=== PATIENT | female | born 1990 | race Hispanic/Latino ===

== ENCOUNTER 2016-12-07 13:43 | Emergency (ER) | payer MEDICAID ==
[2016-12-07 13:44] VITALS: BMI 23.0
[2016-12-07 13:50] VITALS: BP 123/76; PULSE 66; RESP 16; TEMP 98; O2SAT 100
--- NOTE | 2016-12-07 14:01 | ED PDOC ---
HPI: General Adult Time Seen by Provider: 12/07/16 13:55 Chief Complaint (Nursing): Abnormal Skin Integrity Chief Complaint (Provider): blister History Per: Patient, Family History/Exam Limitations: no limitations Onset/Duration Of Symptoms: Days (Yesterday.) Additional Complaint(s): Patient sustained minor blister to right hand yesterday. She went to work today and was told she needs to cover the blister on her hand so she came to ED as she does not have any bandaids at home. Patient denies any drainage to affected area but has mild pain. PMD: None Past Medical History Reviewed: Historical Data, Nursing Documentation, Vital Signs Vital Signs: Last Vital Signs Temp 98.0 F 12/07/16 13:47 Pulse 66 12/07/16 13:47 Resp 16 12/07/16 13:47 BP 123/76 12/07/16 13:47 Pulse Ox 100 12/07/16 14:06 - Medical History PMH: No Chronic Diseases - Surgical History Surgical History: Tonsillectomy - Family History Family History: States: No Known Family Hx - Living Arrangements Living Arrangements: With Family - Social History Current smoker - smoking cessation education provided: No Alcohol: None Drugs: Denies - Immunization History Hx Tetanus Toxoid Vaccination: Yes - Home Medications Home Medications: Ambulatory Orders Medication Instructions Recorded Nitrofurantoin Macrocrystals 100 mg PO BID #10 cap 01/28/14 [Macrobid] Acetaminophen/Codeine Phosph 1 tab PO Q6H PRN #20 tab 01/05/15 [Acetaminophen/Codeine 300 mg-15 mg] - Allergies Allergies/Adverse Reactions: Allergies Allergy/AdvReac Type Severity Reaction Status Date / Time No Known Allergies Allergy Verified 01/23/14 11:51 Review of Systems ROS Statement: Except As Marked, All Systems Reviewed And Found Negative Musculoskeletal: Positive for: Other (Blister on the right index finger.) Physical Exam - Reviewed Nursing Documentation Reviewed: Yes Vital Signs Reviewed: Yes - Physical Exam Appears: Positive for: Well, Non-toxic, No Acute Distress Skin: Positive for: Normal Color. Negative for: Rash Eye Exam: Positive for: Normal appearance Cardiovascular/Chest: Positive for: Tachycardia Extremity: Positive for: Normal ROM, Other (Small blister on the right index finger. No active drainage. Full range of motion of all digits on the right hand.) Neurologic/Psych: Positive for: Alert, Oriented - ECG O2 Sat by Pulse Oximetry: 100 (RA) Pulse Ox Interpretation: Normal Medical Decision Making Medical Decision Makin: Initial Impression: Blister on the index finger of the right hand. Initial Plan: * blister area cleansed with normal saline. * Bandage applied to hand. Patient was given wound care instructions. Scribe Attestation: Documented by Farhan Daugherty acting as a scribe for Zakiya Willson PA-C. Provider Scribe Attestation: All medical record entries made by the Scribe were at my direction and personally dictated by me. I have reviewed the chart and agree that the record accurately reflects my personal performance of the history, physical exam, medical decision making, and the department course for this patient. I have also personally directed, reviewed, and agree with the discharge instructions and disposition. Time Disposition - Clinical Impression Clinical Impression: Blister - Patient ED Disposition Is Patient to be Admitted: No Counseled Patient/Family Regarding: Diagnosis, Need For Followup - Disposition Referrals: [facility] [Outside] Disposition: Routine/Home Disposition Time: 14:28 Condition: STABLE Additional Instructions: Keep area clean and dry. Follow up with clinic in 2-3 days. Instructions: Blister (ED) Forms: [employer] (Singaporean)
== END 2016-12-07 16:23 | disposition home or self-care (01) ==
LOC: H.ER 13:43
DX: M79.641 Pain in right hand (principal)

== ENCOUNTER 2018-07-14 04:55 | Inpatient (IN) | payer OTHER ==
[2018-07-14 05:53] VITALS: BMI 27.4
[2018-07-14] MEDS ORDERED: Lactated Ringer's 1,000 ML IV ONE ×3 (05:53→10:19)
[2018-07-14] MEDS ORDERED: Oxytocin 30 UNIT in NS 500 ml 30 UNITS/500 ML BAG IV ONE (05:56)
[2018-07-14 06:47] LABS: BASO % 0.2 % (0.0-2.0); EOS % 0.3 % (0.0-4.0); HEMOGLOBIN 10.8 g/dL (12.0-16.0); LYMPH # 2.4 K/uL (1.0-4.3); LYMPH % 28.4 % (20.0-40.0); MEAN CELL VOLUME 75.2 fl (81.0-99.0); MEAN CORPUSCULAR HEMOGLOBIN 24.5 pg (27.0-31.0); MEAN CORPUSCULAR HGB CONC 32.5 g/dL (33.0-37.0); MONO # 0.7 K/uL (0.0-0.8); MONO % 8.6 % (0.0-10.0); NEUT # 5.2 K/uL (1.8-7.0); NEUT % 62.5 % (50.0-75.0); NRBC % 0.2 % (0.0-0.0); RBC 4.43 Mil/uL (3.80-5.20); RED CELL DISTRIBUTION WIDTH 15.9 % (11.5-14.5); WHITE BLOOD COUNT 8.3 K/uL (4.8-10.8)
[2018-07-14 06:54] LABS: MEAN PLATELET VOLUME 7.1 fl (7.2-11.7)
[2018-07-14] MEDS ORDERED: Lidocaine 1% Inj (20ml) ONE (07:07)
[2018-07-14] MEDS ORDERED: Oxycodone/Acetaminophen 5/325 mg Tab PO PRN ×4 (07:46→10:19)
[2018-07-14] MEDS ORDERED: Benzocaine/Menthol SPRAY TOP PRN ×2 (07:46→10:19)
[2018-07-14] MEDS ORDERED: Multivitamin With Minerals Tab PO SCH (09:00)
[2018-07-14 16:11] LABS: BARBITURATES, UR NEGATIVE (NEGATIVE); BENZODIAZEPINES, UR NEGATIVE (NEGATIVE); OPIATES, UR NEGATIVE (NEGATIVE); PHENCYCLIDINE, UR NEGATIVE (NEGATIVE)
[2018-07-15 06:44] LABS: BASO % 0.4 % (0.0-2.0); EOS # 0.1 K/uL (0.0-0.7); EOS % 0.5 % (0.0-4.0); HEMOGLOBIN 9.5 g/dL (12.0-16.0); LYMPH # 2.6 K/uL (1.0-4.3); LYMPH % 21.4 % (20.0-40.0); MEAN CELL VOLUME 75.6 fl (81.0-99.0); MEAN CORPUSCULAR HEMOGLOBIN 24.3 pg (27.0-31.0); MEAN CORPUSCULAR HGB CONC 32.2 g/dL (33.0-37.0); MEAN PLATELET VOLUME 6.7 fl (7.2-11.7); NEUT # 8.5 K/uL (1.8-7.0); NEUT % 69.7 % (50.0-75.0); NRBC % 0.1 % (0.0-0.0); RBC 3.91 Mil/uL (3.80-5.20); RED CELL DISTRIBUTION WIDTH 15.9 % (11.5-14.5); WHITE BLOOD COUNT 12.2 K/uL (4.8-10.8)
[2018-07-15] MEDS: Multivitamin With Minerals Tab PO SCH (09:02)
[2018-07-16] MEDS: Multivitamin With Minerals Tab PO SCH (08:59)
[2018-07-16] MEDS ORDERED: Measles, Mumps, and Rubella 0.5 ML VIAL SC ONE (09:00)
[2018-07-16] MEDS ORDERED: Simethicone 80 mg Chewtab PO SCH (09:00)
--- NOTE | 2018-07-16 09:25 | OBPPN ---
Datetime: 07/16/2018 06:11 PP Pain Prov: Within normal limits PP Nausea Prov: Denies PP Flatus Prov: No PP BM Prov: No PP Heart Prov: Normal PP Abdomen/Uterus Prov: Normal PP Lochia Prov: Normal PP Extremities Prov: Normal PP C/S Incision Prov: Not Applicable PP Progress Prov: Normal PP Comments Phys Exam Prov: Gen: NAD HEENT: NCAT, EOMI Cardio: + S1S2, RRR Lungs: CTA B/L, no wheezes, rales or rhonchi Abd: soft, hyperactive bowel sounds, mild tenderness to palpation mid lower abdomen, no rigidity, no guarding, no tympany, UB firm below level of umbilicus Ext: No edema, calves non tender H _ H: aCBC:10.8/33.3, pCBC: 9.5/29.5 PP Impression Prov: Normal progression PP Plan Prov: Discharge PP Progress Note Prov: Pt is a 28 yo PPD 2 s/p on 07/14/18 @ 39.2weeks. Pt was seen and examined at bedside this AM. Patient has no complaints, pain controlled without needing medication. P atient is ambulating w.o difficulty, still has not passed gas or had a bowel movement, has only been walking around the room. Pt is breast feeding. Pt is tolerating regular PO diet. Lochia less than men ses. Denies fevers, chills, dizziness, chest pain, SOB, nausea, vomiting, or dysuria. VS: BP 117/68 Gen: NAD HEENT: NCAT, EOMI Cardio: + S1S2, RRR Lungs: CTA B/L, no wheezes, rales or rhonchi Abd: soft, hyperactive bowel sounds, mild tenderness to palpation mid lower abdomen, no rigidity, no guarding, no tympany, UB firm below level of umbilicus Ext: No edema, calves non tender H _ H: aCBC:10.8/33.3, pCBC: 9.5/29.5 Assessment: Pt is a 28 yo PPD 2 s/p on 07/14/18 @ 39.2weeks, clinically stable Plan: -Encouraged increased ambulation down hallways to stimulate bowels added simethicone -Discharge home today -Rubella Equivocal- received MMR - encouraged. -Script written for Ibuprofen 600mg 1 tab Q 6h PRN mild pain #30 No refills -Continue vitamin -If fevers, pain not controlled with medications, increased vaginal bleeding come back to ED -Avoid stairs, heavy lifting, nothing per vagina/intercourse for 4 weeks -Pt will call and schedule 4-6 week PP visit with Hood Shetty and visit with Dr. Krishnamurthy in 2-3 days Case reviewed and discussed with attending -Andria De Los Santos PGY1 OB Hospoitalist note: Pt sen and agree with PGY1 note. MAXI GUERRA PP Procedures: None Vital Signs Provider PP: Reviewed; Within Normal Limits Datetime: 07/15/2018 06:14 PP Lungs Prov: Normal Vital Signs Provider Details PP: BP 98/57
--- NOTE | 2018-07-16 09:25 | OBDCSUM ---
Datetime: 07/16/2018 06:11 Discharged to, Provider: Home Follow up at, Provider: Hood Shetty Disch Instr Activity: Normal activity Disch Instr Diet: Regular Discharge Instructions, Provider: Routine instructions given Discharge Diagnosis, Provider: Term Delivered Discharge Time: 07/16/2018 06:12 Follow up in weeks, Provider: 4-6 week post visit, 2-3 day new born visit Disch Referrals: None Contraception discussed, Prov: Yes Disch Activity Restrictions: No lifting; Minimize stair-climbing; No sexual activity; Nothing in vag elmer - [place], tampons, douche Discharge Comment, Provider: Ob Discharge Summary DOA: 07/14/18 EGA: 39.2wk Diagnosis: , Delivered term M risk factors: hemorrhage in previous , bleeding wnl, lochia less sandhya n menses today Summary of : L_D summary: DOD: 07/14/18 Infant @7:38 1st degree perineal laceration repaired NB: M : 9 Weight: 3520g summary: No complications during period, pain controlled with medication CBC : .09/15.5 Blood type: O+ DISCHARGE DATA D/C DATE: 07/16/18 TIME: 8:00 AM DISCHARGE INSTRUCTIONS: - and ambulation encouraged. -Script written for Ibuprofen 600mg 1 tab Q 6h PRN mild pain #30 No refills -Continue vitamin -If fevers, pain not controlled with medications, increased vaginal bleeding come back to ED -Avoid stairs, heavy lifting, nothing per vagina/intercourse for 4 weeks - Pt will call and schedule 4-6 week PP visit with Hood Shetty and visit with Dr. Karen napier in 2-3 days Case reviewed and discussed with attending -Andria De Los Santos PGY1 Contraception after Delivery: IUD
--- NOTE | 2018-07-16 09:32 | OBDS ---
DELIVERY PERSONNEL Delivery Doctor: Spike Barrios DO Brake Operator Sheet Metal: Lanie Branch RN MATERNAL INFORMATION Delivery Anesthesia: Local Medications in Delivery: none Estimated Blood Loss (ml): 200 Placenta Cultured: No Maternal Complications: None Provider Comments: Over intact perineum, of live . was crying spontaneously and p laced on mother's chest. placenta deliveed intact spontaneously. 9,9. She remained stable EB L 200cc (Annotations: Data stored by [facility] on behalf of user) LABOR SUMMARY EDC: 07/19/2018 00:00 No. Babies in Womb: 1 Attempted: No Labor Anesthesia: None LABOR INFORMATION Reason for Induction: Not Applicable Onset of Labor: 07/14/2018 03:00 Onset of Labor: 07/14/2018 03:00 Complete Dilatation: 07/14/2018 07:30 Oxytocin: N/A Steroids Given: None Reason Steroids Not Administered: Not Applicable MEMBRANES Membranes Rupture Method: Spontaneous Membranes Rupture Method: Spontaneous Rupture of Membranes: 07/14/2018 07:30 Length of Rupture (hrs): 0.13 Amniotic Fluid Color: Clear Amniotic Fluid Color: Clear Amniotic Fluid Amount: Small Amniotic Fluid Odor: Normal Amniotic Fluid Odor: Normal STAGES OF LABOR Stage 1 hrs: 4 Stage 1 min: 30 Stage 2 hrs: 0 Stage 2 min: 8 Stage 3 hrs: 0 Stage 3 min: 6 Total Time in Labor hrs: 4 Total Time in Labor min: 44 VAGINAL DELIVERY Episiotomy: None Laceration Extension: First Degree Laceration Type: Perineal Laceration Repair: Yes Laceration Repair Note: 1% Lidocaine infiltrated 2cc. 2.0 Vicryl Rapide suture used to repair lacer atoin (one figure of eight stitch) Initial Vag Sponge Count: 5 Final Vag Sponge Count: 5 Initial Vag Sharps Count: 1 Final Vag Sharps Count: 1 Sponge Count Correct: Yes Sharps Count Correct: Yes BABY A INFORMATION Infant Delivery Date/Time: 07/14/2018 07:38 Method of Delivery: Vaginal Born in Route : No : N/A Forceps: N/A Vacuum Extraction: N/A Shoulder Dystocia : No SHOULDER DYSTOCIA BABY A Infant Delivery Date/Time: 07/14/2018 07:38 PRESENTATION/POSITION BABY A Presentation: Cephalic PLACENTA INFORMATION BABY A Placenta Delivery Time : 07/14/2018 07:44 Placenta Method of Delivery: Spontaneous Placenta Status: Delivered SCORES BABY A Heart Rate 1 min: >100 bpm Resp Effort 1 min: Good Cry Reflex Irritability 1 min: Cough or Sneeze or Pulls Away Muscle Tone 1 min: Active Motion Color 1 min: Body [place], Extremities Blue Resuscitation Effort 1 min: Tactile Stimulation SCORE 1 MIN: 9 Heart Rate 5 min: >100 bpm Resp Effort 5 min: Good Cry Reflex Irritability 5 min: Cough or Sneeze or Pulls Away Muscle Tone 5 min: Active Motion Color 5 min: Body [place], Extremities Blue Resuscitation Effort 5 min: N/A SCORE 5 MIN: 9 INFORMATION BABY A Gestational Age at Delivery: 39.3 Gestational Status: Term Infant Outcome : Liveborn Condition : Stable Infant Sex: Male IDENTIFICATION/MEDS BABY A ID Band Number: [id number] WEIGHT/LENGTH BABY A Birthweight (gms): 3520 Infant Weight (lb): 7 Weight (oz): 12 CORD INFORMATION BABY A No. Cord Vessels: 3 Nuchal Cord : N/A Cord Blood Taken: Yes Suction: None
--- NOTE | 2018-07-16 09:34 | OBDS ---
DELIVERY PERSONNEL Delivery Doctor: Spike Barrios DO Perl Software Engineer: Branch, Lanie RN MATERNAL INFORMATION Delivery Anesthesia: Local Medications in Delivery: none Estimated Blood Loss (ml): 200 Placenta Cultured: No Maternal Complications: None Provider Comments: Over intact perineum, of live . was crying spontaneously and p laced on mother's chest. placenta deliveed intact spontaneously. 9,9. She remained stable EB L 200cc (Annotations: Data stored by [facility] on behalf of user) LABOR SUMMARY EDC: 07/19/2018 00:00 No. Babies in Womb: 1 Attempted: No Labor Anesthesia: None LABOR INFORMATION Reason for Induction: Not Applicable Onset of Labor: 07/14/2018 03:00 Complete Dilatation: 07/14/2018 07:30 Oxytocin: N/A Steroids Given: None Reason Steroids Not Administered: Not Applicable MEMBRANES Membranes Rupture Method: Spontaneous Rupture of Membranes: 07/14/2018 07:30 Length of Rupture (hrs): 0.13 Amniotic Fluid Color: Clear Amniotic Fluid Amount: Small Amniotic Fluid Odor: Normal STAGES OF LABOR Stage 1 hrs: 4 Stage 1 min: 30 Stage 2 hrs: 0 Stage 2 min: 8 Stage 3 hrs: 0 Stage 3 min: 6 Total Time in Labor hrs: 4 Total Time in Labor min: 44 VAGINAL DELIVERY Episiotomy: None Laceration Extension: First Degree Laceration Type: Perineal Laceration Repair: Yes Laceration Repair Note: 1% Lidocaine infiltrated 2cc. 2.0 Vicryl Rapide suture used to repair lacer atoin (one figure of eight stitch) Initial Vag Sponge Count: 5 Final Vag Sponge Count: 5 Initial Vag Sharps Count: 1 Final Vag Sharps Count: 1 Sponge Count Correct: Yes Sharps Count Correct: Yes BABY A INFORMATION Delivery Date/Time: 07/14/2018 07:38 Method of Delivery: Vaginal Born in Route : No : N/A Forceps: N/A Vacuum Extraction: N/A Shoulder Dystocia : No SHOULDER DYSTOCIA BABY A Infant Delivery Date/Time: 07/14/2018 07:38 PRESENTATION/POSITION BABY A Presentation: Cephalic PLACENTA INFORMATION BABY A Placenta Delivery Time : 07/14/2018 07:44 Placenta Method of Delivery: Spontaneous Placenta Status: Delivered SCORES BABY A Heart Rate 1 min: >100 bpm Resp Effort 1 min: Good Cry Reflex Irritability 1 min: Cough or Sneeze or Pulls Away Muscle Tone 1 min: Active Motion Color 1 min: Body [place], Extremities Blue Resuscitation Effort 1 min: Tactile Stimulation SCORE 1 MIN: 9 Heart Rate 5 min: >100 bpm Resp Effort 5 min: Good Cry Reflex Irritability 5 min: Cough or Sneeze or Pulls Away Muscle Tone 5 min: Active Motion Color 5 min: Body [place], Extremities Blue Resuscitation Effort 5 min: N/A SCORE 5 MIN: 9 INFANT INFORMATION BABY A Gestational Age at Delivery: 39.3 Gestational Status: Term Infant Outcome : Liveborn Infant Condition : Stable Infant Sex: Male IDENTIFICATION/MEDS BABY A ID Band Number: [id number] WEIGHT/LENGTH BABY A Birthweight (gms): 3520 Infant Weight (lb): 7 Infant Weight (oz): 12 CORD INFORMATION BABY A No. Cord Vessels: 3 Nuchal Cord : N/A Cord Blood Taken: Yes Suction: None
[2018-07-16 19:54] VITALS: BP 99/61; PULSE 62; RESP 18; TEMP 98.2; O2SAT 99
== END 2018-07-16 12:05 | disposition home or self-care (01) | DRG 373 ==
LOC: H.EROB2 04:55 → H.L&D 05:53 → H.OB/GYN 09:45
PROVIDERS: ADMIT Obstetrics & Gynecology; ATTEND Obstetrics & Gynecology
PROC: 10E0XZZ Delivery of Products of Conception, External Approach (ICD-10-PCS; principal; 2018-07-14)
PROC: 4A1HXCZ Monitoring of Products of Conception, Cardiac Rate, External Approach (ICD-10-PCS; 2018-07-14)
PROC: 0HQ9XZZ Repair Perineum Skin, External Approach (ICD-10-PCS; 2018-07-14)
DX: O70.0 First degree perineal laceration during delivery (principal); Z37.0 Single live birth; Z3A.39 39 weeks gestation of pregnancy